=== PATIENT | male | born 1995 | race Hispanic/Latino ===

== ENCOUNTER 2023-09-08 18:35 | Emergency (ER) | payer SELFPAY ==
[~2023-09-08] VITALS: Ht 157.5 cm; Wt 64.0 kg
[2023-09-08 22:41] VITALS: BP 124/86
== END 2023-09-08 22:47 | disposition home or self-care (01) | DRG 155 ==
LOC: ED 18:35
PROC: 0HQ1XZZ Repair Face Skin, External Approach (ICD-10-PCS; principal; 2023-09-08)
DX: S02.2XXA Fracture of nasal bones, initial encounter for closed fracture (principal); T79.7XXA Traumatic subcutaneous emphysema, initial encounter; S01.21XA Laceration without foreign body of nose, initial encounter; S00.511A Abrasion of lip, initial encounter; W19.XXXA Unspecified fall, initial encounter; Y93.66 Activity, soccer

== ENCOUNTER 2023-09-23 14:10 | Emergency (ER) | payer SELFPAY ==
[~2023-09-23] VITALS: Ht 157.5 cm; Wt 72.5 kg
== END 2023-09-23 15:00 | disposition home or self-care (01) | DRG 950 ==
LOC: ED 14:10
DX: S01.21XD Laceration without foreign body of nose, subsequent encounter (principal); X58.XXXD Exposure to other specified factors, subsequent encounter